=== PATIENT | male | born 1950 | race Two or more races ===

== ENCOUNTER 2023-11-17 18:04 | Emergency (ER) | payer MEDICARE, SELFPAY ==
[2023-11-17 18:23] VITALS: BP 146/84; PULSE 90; TEMP 36.7; O2SAT 99; BMI 25.1
--- NOTE | 2023-11-17 18:47 | CT_ITS ---
The [address] [address] Patient Name: URSULA RUELAS MRN: [id number] date: 1950 Sex: M Assigned Patient Location: ER Current Patient Location: ER Accession/Order Number: [id number] Exam Date: 11/17/2023 19:43 Report Date: 11/17/2023 20:21 At the request of: BIB GALARZA Procedure: CT abdomen pelvis w con EXAM: CT abdomen pelvis w con HISTORY: abdominal pain COMPARISON: None. TECHNIQUE: IV contrast enhanced CT imaging of the abdomen and pelvis. This CT exam was performed using one or more of the following dose reduction techniques: Automated exposure control, adjustment of the mA and/or KV according to patient size, or use of iterative reconstruction technique. Unless otherwise stated, incidental findings do not require dedicated follow-up imaging. FINDINGS: There is bibasilar atelectasis. The heart size is normal. There is mild hepatic steatosis. The spleen, pancreas, and adrenal glands are normal. The kidneys enhance symmetrically. There is a right midpole renal cyst. The gallbladder is distended. There is no biliary duct dilatation. There is chain suture in the sigmoid colon. There is sigmoid diverticulosis and left colon diverticulosis without evidence of acute diverticulitis. There is a few dilated loops of small bowel in the left abdomen. These measure up to 3.9 cm in diameter. The distal small bowel loops are decompressed. There is degenerative disc disease of the lumbar spine. There is posterior fusion hardware in the lower lumbar spine. There is atherosclerosis of the abdominal aorta and its branch vessels. CT/CT abdomen pelvis w con IMPRESSION: 1. Incomplete small bowel obstruction with the transition point occurring in the midline of the lower abdomen. 2. Sigmoid and left colon diverticulosis without acute diverticulitis. Electronically authenticated by: KIRSTY TALAMANTES Date: 11/17/2023 20:21
[2023-11-17 18:50] LABS: Bilirubin Urine NEGATIVE (NEGATIVE); Blood Urine NEGATIVE (NEGATIVE); Clarity Urine CLEAR (CLEAR); Color Urine YELLOW (YELLOW); Glucose Urine UA NEGATIVE (NEGATIVE); Ketones Urine TRACE mg/dL (NEGATIVE); Leukocyte Esterase Urine NEGATIVE (NEGATIVE); Nitrite Urine NEGATIVE (NEGATIVE); Protein Urine 30 mg/dL (NEG/TRACE); pH Urine 7.5 (5.0-9.0)
[2023-11-17 18:50] LABS: Basophils Percent Auto 0.3 % (0.2-2.0); Eosinophils Absolute Auto 0.2 10^3/uL (0.0-0.7); Hematocrit 40.1 % (42.0-54.0); Immature Granulocytes Abs Auto 0.05 10^3/uL (0.00-0.03); Immature Granulocytes Pct Auto 0.4 % (0.0-0.5); Lymphocytes Absolute Auto 1.6 10^3/uL (1.2-3.8); Lymphocytes Percent Auto 13.5 % (20.5-60.0); Mean Corpuscular HGB Conc 32.4 g/dL (29.9-35.2); Mean Corpuscular Volume 86.2 fL (80.0-94.0); Mean Platelet Volume 9.8 fL (9.5-13.5); Monocytes Absolute Auto 0.7 10^3/uL (0.3-0.8); Monocytes Percent Auto 5.8 % (1.7-12.0); Neutrophils Absolute Auto 9.3 10^3/uL (1.4-6.5); Platelet Count 217 10^3/uL (150-450); Red Blood Count 4.65 10^6/uL (4.70-6.10); Red Cell Distribution Width 12.9 % (11.0-15.0)
--- NOTE | 2023-11-17 18:51 | ED_ITS ---
HPI - Abdominal Pain General Chief Complaint: Abdominal Pain Stated Complaint: Abdominal Pain Time Seen by Provider: 11/17/23 18:30 Source: patient Mode of arrival: walk-in Limitations: no limitations History of Present Illness HPI narrative: Patient is a 73-year-old male with a history of hernia repair many years ago in the abdomen as well as a colon resection for colon cancer approximately 10 years ago, presents to the ER for evaluation of diffuse mid abdominal pain that began last night and has not improved today. He was diagnosed with a developing small bowel obstruction 1 year ago in this emergency department. He states he has had 3 episodes of emesis today, no fevers or upper respiratory symptoms. He denies any urinary symptoms. He had a bowel movement 45 minutes prior to arrival. No medications taken prior to arrival for symptoms. Related Data Home Medications ?Medication ?Instructions ?Recorded ?Confirmed tramadol 50 mg tablet 50 mg PO Q6H PRN pain 11/17/23 11/17/23 Previous Rx's ?Medication ?Instructions ?Recorded ondansetron 4 mg disintegrating 4 mg PO Q6H PRN nausea and 11/17/23 tablet vomiting #12 tabs tramadol 50 mg tablet 50 mg PO Q6H PRN pain #12 tabs 11/17/23 Allergies Allergy/AdvReac Type Severity Reaction Status Date / Time No Known Drug Allergies Allergy Verified 11/17/23 18:23 Review of Systems ROS Constitutional Denies: fever or chills Ears, nose, mouth, and throat Denies: throat pain or nasal congestion Cardiovascular Denies: chest pain Respiratory Denies: shortness of breath Gastrointestinal Reports: abdominal pain, nausea and vomiting; Denies: diarrhea or constipation Genitourinary Denies: painful urination Musculoskeletal Denies: back pain or neck pain Integumentary/Breast Denies: rash Neurological Denies: headache Hematologic/Lymphatic Denies: easy bruising or easy bleeding Exam Narrative Exam Narrative: Gen.: Awake, alert, in no distress Head: Normocephalic, atraumatic ENT: Moist mucous membranes Respiratory: No respiratory distress, lungs clear bilaterally Cardio: Regular rate and rhythm Gastrointestinal: Abdomen is soft, nondistended and Mildly tender to palpation in the umbilical abdomen. Well-healed surgical incision over the midline umbilical abdomen. Extremities: Moves extremities equally Psych: Normal mood and affect Neuro: No focal neuro deficit Skin: Warm, dry, intact Constitutional Vital Signs, click to edit/add: Last Vital Signs Temp 98.1 F 11/17/23 18:23 Pulse 92 H 11/17/23 19:31 Resp 18 11/17/23 19:31 BP 128/69 11/17/23 19:31 Pulse Ox 98 11/17/23 19:31 O2 Del Method Room Air 11/17/23 19:35 Course Vital Signs Vital signs: Vital Signs Temperature 98.1 F 11/17/23 18:23 Pulse Rate 90 11/17/23 18:23 Respiratory Rate 18 11/17/23 18:23 Blood Pressure 146/84 H 11/17/23 18:23 Pulse Oximetry 99 11/17/23 18:23 Oxygen Delivery Method Room Air 11/17/23 18:23 Temperature 98.1 F 11/17/23 18:23 Pulse Rate 92 H 11/17/23 19:31 Respiratory Rate 18 11/17/23 19:31 Blood Pressure 128/69 11/17/23 19:31 Pulse Oximetry 98 11/17/23 19:31 Oxygen Delivery Method Room Air 11/17/23 19:35 MDM - Abdominal Pain MDM Narrative Medical decision making narrative: Patient was medicated with IV fluids, pain medication and nausea medication. He has stable vital signs in the ER, no episodes of emesis and he had a bowel movement immediately prior to arrival. His labs are stable, no significant white blood cell count. Kidney function is stable and CT of the abdomen and pelvis shows a incomplete/partial small bowel obstruction. I discussed this with Dr. Lott, reviewed the patient's labs, presentation and CT findings. He recommended that if the patient is able to take fluids and pain is controlled, he can be discharged to trial outpatient therapy. Patient was reexamined by Dr. Taylor, patient and family are comfortable with treatment plan and patient would like to try outpatient treatment. He was encouraged to follow a clear liquid diet for 48 hours. Follow-up in the general surgery office and immediately re turn to the emergency department if he continues to vomit or stops passing gas. Medical Records Attestation: I reviewed the patient's medical records. Lab Data Attestation: I reviewed the patient's lab results. Labs: Lab Results 11/17/23 11/17/23 Range/Units 18:40 18:42 WBC 12.0 H (4.0-11.0) 10^3/uL RBC 4.65 L (4.70-6.10) 10^6/uL Hgb 13.0 L (14.0-18.0) g/dL Hct 40.1 L (42.0-54.0) % MCV 86.2 (80.0-94.0) fL MCH 28.0 (25.9-34.0) pg MCHC 32.4 (29.9-35.2) g/dL RDW 12.9 (11.0-15.0) % Plt Count 217 (150-450) 10^3/uL MPV 9.8 (9.5-13.5) fL Neut % (Auto) 78.0 H (43.0-75.0) % Lymph % (Auto) 13.5 L (20.5-60.0) % [place] % (Auto) 5.8 (1.7-12.0) % Eos % (Auto) 2.0 (0.9-7.0) % Baso % (Auto) 0.3 (0.2-2.0) % Neut # (Auto) 9.3 H (1.4-6.5) 10^3/uL Lymph # (Auto) 1.6 (1.2-3.8) 10^3/uL Beckham # (Auto) 0.7 (0.3-0.8) 10^3/uL Eos # (Auto) 0.2 (0.0-0.7) 10^3/uL Baso # (Auto) 0.0 (0.0-0.1) 10^3/uL Abs Immat Gran (auto) 0.05 H (0.00-0.03) 10^3/uL Imm/Tot Granulo (auto) 0.4 (0.0-0.5) % PT 9.7 (9.0-11.6) sec INR <0.93 Sodium 142 (136-145) mmol/L Potassium 4.1 (3.5-5.1) mmol/L Chloride 104 (98-107) mmol/L Carbon Dioxide 26.8 (21.0-32.0) mmol/L Anion Gap 15.3 BUN 28.0 H (7.0-18.0) mg/dL Creatinine 1.40 H (0.70-1.30) mg/dL Est GFR ( Amer) >60 (>=60) Est GFR (Non-Af Amer) 50 L (>=60) BUN/Creatinine Ratio 20.0 Glucose 124 H (74-106) mg/dL Lactate 2.3 H* (0.4-2.0) mmol/L Calcium 9.8 (8.5-10.1) mg/dL Total Bilirubin 0.5 (0.2-1.0) mg/dL AST 17 (15-37) U/L ALT 23 (16-63) U/L Alkaline Phosphatase 93 (46-116) U/L Total Protein 7.4 (6.4-8.2) g/dL Albumin 3.8 (3.4-5.0) g/dL Globulin 3.6 g/dL Albumin/Globulin Ratio 1.1 Lipase 33.0 (16.0-77.0) U/L Urine Color Yellow (YELLOW) Urine Clarity Clear (CLEAR) Urine pH 7.5 (5.0-9.0) Ur Specific [place] 1.020 (1.005-1.025) Urine Protein 30 A (NEG/TRACE) mg/dL Urine Glucose (UA) Negative (NEGATIVE) mg/dL Urine Ketones Trace A (NEGATIVE) mg/dL Urine Occult Blood Negative (NEGATIVE) Urine Nitrite Negative (NEGATIVE) Urine Bilirubin Negative (NEGATIVE) Urine Urobilinogen 1.0 (0.2-1.0) EU/dL Ur Leukocyte Esterase Negative (NEGATIVE) Urine RBC 0-2 (0-2) #/HPF Urine WBC 0-2 A (NONE SEEN) #/HPF Ur Squamous Epith Cells Rare (NONE/RARE) #/LPF Urine Crystals None seen (None Seen) #/HPF Urine Bacteria None seen (NONE SEEN) #/HPF Urine Casts None seen (NONE SEEN) #/LPF Urine Mucus Trace A (NONE SEEN) Ur Culture Indicated? No Imaging Data CT scan - abdomen: Attestation: I have reviewed the pertinent imaging results. Radiologist's impression: ITS Impressions Abdomen/Pelvis CT 11/17/23 18:47 IMPRESSION: 1. Incomplete small bowel obstruction with the transition point occurring in the midline of the lower abdomen. 2. Sigmoid and left colon diverticulosis without acute diverticulitis. Electronically authenticated by: KIRSTY TALAMANTES Date: 11/17/2023 20:21 Discharge Plan Discharge Stand Alone Forms: Portal Instructions Chief Complaint: Abdominal Pain Clinical Impression: Partial small bowel obstruction Patient Disposition: Home, Self-Care Time of Disposition Decision: 20:43 Condition: Good Prescriptions / Home Meds: New ondansetron 4 mg tablet,disintegrating 4 mg PO Q6H PRN (Reason: nausea and vomiting) Qty: 12 0RF tramadol 50 mg tablet 50 mg PO Q6H PRN (Reason: pain) Qty: 12 0RF Rx Instructions: DX: R10.9 No Action tramadol 50 mg tablet 50 mg PO Q6H PRN (Reason: pain) Print Language: Eritrean Instructions: Clear Liquid Diet (ED), Bowel Obstruction (ED) Additional Instructions: Please follow a clear liquid diet for 48 hours. Call the general surgery office tomorrow for follow up. If you have persistent vomiting or stop passing gas, you need to be reevaluated Referrals: Isra Lott DO [Physician] - As soon as possible BIRD LUI [Primary Care Provider] - 1 week Discharge Date/Time: 11/17/23 21:05
[2023-11-17 18:53] LABS: Urine Microscopic Indicated YES
[2023-11-17] MEDS: HYDROMORPHONE HCL 0.5 MG/0.5 ML SYRINGE IVP (18:55)
[2023-11-17] MEDS: ONDANSETRON PF 4 MG/2 ML VIAL IV (18:56)
[2023-11-17 19:07] LABS: Prothrombin Time 9.7 sec (9.0-11.6)
[2023-11-17 19:08] LABS: INR <0.93
[2023-11-17 19:14] LABS: Bacteria Urine NONE SEEN #/HPF (NONE SEEN); Cast Seen? NONE SEEN #/LPF (NONE SEEN); Crystals Seen? None Seen #/HPF (None Seen); Mucus Urine TRACE (NONE SEEN); RBC Urine 0-2 #/HPF (0-2); Squamous Epithelial Cell Urine RARE #/LPF (NONE/RARE); Urine Culture Indicated NO; WBC Urine 0-2 #/HPF (NONE SEEN)
[2023-11-17 19:19] LABS: Alanine Aminotransferase 23 U/L (16-63); Albumin Globulin Ratio 1.1; Albumin Level 3.8 g/dL (3.4-5.0); Alkaline Phosphatase 93 U/L (46-116); Anion Gap 15.3; Aspartate Amino Transferase 17 U/L (15-37); Bilirubin Total 0.5 mg/dL (0.2-1.0); Calcium 9.8 mg/dL (8.5-10.1); Carbon Dioxide 26.8 mmol/L (21.0-32.0); Chloride 104 mmol/L (98-107); Estimated GFR (African America >60 (>=60); Estimated GFR (Non-African Ame 50 (>=60); Globulin 3.6 g/dL; Glucose 124 mg/dL (74-106); Potassium 4.1 mmol/L (3.5-5.1); Sodium 142 mmol/L (136-145); Total Protein 7.4 g/dL (6.4-8.2)
[2023-11-17 19:21] LABS: Lactate/Lactic Acid 2.3 mmol/L (0.4-2.0)
[2023-11-17 19:31] VITALS: BP 128/69; PULSE 92; O2SAT 98
[2023-11-17] MEDS: 0.9 % SODIUM CHLORIDE 1,000 ML 500 ML IV (19:52)
[2023-11-17] MEDS: HYDROCODONE/ACET 5-325 MG TABLET 1 TAB PO (20:59)
== END 2023-11-17 21:05 | disposition home or self-care (01) ==
PROVIDERS: Physician Assistant; Emergency Provider Internal Medicine; PCP Family Medicine
DX: K56.600 Partial intestinal obstruction, unspecified as to cause (principal); Z85.038 Personal history of other malignant neoplasm of large intestine; Z90.49 Acquired absence of other specified parts of digestive tract
CPT/HCPCS: 36415; 74177; 80053; 81001; 83605; 83690; 85025; 85610; 96374; 96375; 99285; J1170; Q9967

== ENCOUNTER 2024-05-02 11:57 | Emergency (ER) | payer MEDICARE, SELFPAY ==
[2024-05-02 12:04] VITALS: BP 115/68; PULSE 69; O2SAT 98; BMI 25.8
--- NOTE | 2024-05-02 12:12 | XR_ITS ---
The [address] [address] Patient Name: URSULA RUELAS MRN: [id number] date: 1950 Sex: M Assigned Patient Location: ER Current Patient Location: ER Accession/Order Number: [id number] Exam Date: 05/02/2024 12:28 Report Date: 05/02/2024 12:59 At the request of: DILCIA SHAY Procedure: XR lumbar spine 2-3V EXAMINATION: XR lumbar spine 2-3V HISTORY: Atraumatic pain COMPARISON: CT abdomen pelvis 11/17/2023 FINDINGS: BONES: Posterior mechanical fusion of L4 and L5 via pedicle screws and rods. No appreciable hardware fracture loosening. Mild grade 1 retrolisthesis of L2 on 3. Chronic sclerotic degenerative endplate changes involving contiguous surfaces of L2-3. Multilevel moderate degenerative facet arthropathy. DISC SPACES: Marked narrowing L2-3. Intervertebral disc spacer at L4-5. PARASPINOUS: Negative. No paraspinous abnormality is seen. OTHER: Negative. XR/XR lumbar spine 2-3V IMPRESSION: 1. No appreciable acute abnormality. 2. Stable surgical changes and grossly stable multilevel degenerative changes. Electronically authenticated by: WALKER HANLEY Date: 05/02/2024 12:59
--- NOTE | 2024-05-02 12:12 | XR_ITS ---
The [address] [address] Patient Name: URSULA RUELAS MRN: [id number] date: 1950 Sex: M Assigned Patient Location: ER Current Patient Location: ER Accession/Order Number: [id number] Exam Date: 05/02/2024 12:28 Report Date: 05/02/2024 12:55 At the request of: DILCIA SHAY Procedure: XR foot RT min 3V PROCEDURE: XR foot RT min 3V HISTORY: Atraumatic pain ; dorsal foot pain COMPARISON: None. FINDINGS: BONES:No acute fracture or dislocation. Separate ossifications and irregularity of the first distal phalanx favoring sequela of remote injury. Degenerative changes of the first toe interphalangeal joint. SOFT TISSUES:No visible soft tissue swelling. EFFUSION:None visible. OTHER: Atherosclerotic disease. XR/XR foot RT min 3V IMPRESSION: 1. No acute bone abnormality or suspicious findings to account for patient's symptoms. Electronically authenticated by: WALKER HANLEY Date: 05/02/2024 12:55
--- NOTE | 2024-05-02 12:14 | ED.EXTPRO1 ---
HPI - Extremity Problem General Chief complaint: Extremity Problem, Nontraumatic Stated complaint: LOWER RIGHT EXTREMITY PAIN Time Seen by Provider: 05/02/24 11:59 Source: family Mode of arrival: walk-in Limitations: no limitations History of Present Illness HPI Narrative: 74-year-old male presents to the emergency department for pain of the dorsum of his right foot. This has been an ongoing issue and he saw a foot doctor today who told him that he does not think it is coming from his foot but more likely from his back. About 14 years ago he had back surgery and he has had pain since then. He has not seen a back specialist since then. He has had no injury to the foot. Related Data Home Medications ?Medication ?Instructions ?Recorded ?Confirmed tramadol 50 mg tablet 50 mg PO Q6H PRN pain 11/17/23 11/17/23 Previous Rx's ?Medication ?Instructions ?Recorded ondansetron 4 mg disintegrating 4 mg PO Q6H PRN nausea and 11/17/23 tablet vomiting #12 tabs tramadol 50 mg tablet 50 mg PO Q6H PRN pain #12 tabs 11/17/23 Allergies Allergy/AdvReac Type Severity Reaction Status Date / Time No Known Drug Allergies Allergy Verified 11/17/23 18:23 Review of Systems ROS Narrative A ten point review of systems is negative except as noted above. PFSH PFSH Social History Little interest or pleasure in doing things: not at all Feeling down, depressed, or hopeless: not at all Exam Narrative Exam Narrative: Nurses note and vital signs reviewed and patient is not hypoxic. General: The patient appears well and in no apparent distress. Patient is resting comfortably on cart. Skin: Warm, dry, no pallor noted. There is no rash noted. Head: Normocephalic, atraumatic Eye: Normal conjunctiva, no drainage Ears, Nose, Mouth, and Throat: oral mucosa is moist. Nares patent. Cardiovascular: Regular Rate and Rhythm Respiratory: Patient is in no distress, no accessory muscle use, lungs are clear to auscultation, no wheezing, rales or rhonchi Back: non-tender, no bruise or rash GI: Soft and nontender Musculoskeletal: The patient has no evidence of calf tenderness, no pitting edema, symmetrical pulses noted bilaterally. There is no bruise or rash on his right foot. There does not seem to be palpable tenderness. Neurological: A&O, normal speech Psychiatric: Cooperative Constitutional Vital Signs, click to edit/add: Last Vital Signs Temp 97.5 F L 05/02/24 13:09 Pulse 70 05/02/24 12:15 Resp 20 05/02/24 12:04 BP 115/68 05/02/24 12:04 Pulse Ox 98 05/02/24 12:04 O2 Del Method Room Air 05/02/24 12:04 Course Vital Signs Vital signs: Vital Signs Pulse Rate 69 05/02/24 12:04 Respiratory Rate 20 05/02/24 12:04 Blood Pressure 115/68 05/02/24 12:04 Pulse Oximetry 98 05/02/24 12:04 Oxygen Delivery Method Room Air 05/02/24 12:04 Temperature 97.5 F L 05/02/24 13:09 Pulse Rate 70 05/02/24 12:15 Respiratory Rate 20 05/02/24 12:04 Blood Pressure 115/68 05/02/24 12:04 Pulse Oximetry 98 05/02/24 12:04 Oxygen Delivery Method Room Air 05/02/24 12:04 MDM - Extremity (Nontraumatic) MDM Narrative Medical decision making narrative: X-ray showed no acute findings. I am suspicious of peripheral neuropathy and he is being referred to neurology at the 's request. He will follow-up with his PCP as well. Treatment diagnosis and follow-up were discussed with the patient and his . The patient was given a prescription for Percocet earlier today by his assembler surgical garment which she will fill and he was given 1 here as well. Differential Diagnosis Differential diagnosis: Likely other (Peripheral neuropathy, lumbar radiculopathy, foot pain) Imaging Data Foot x-ray, lumbar x-ray: Radiologist's impression: ITS Impressions Foot X-Ray 05/02/24 12:12 IMPRESSION: 1. No acute bone abnormality or suspicious findings to account for patient's symptoms. Electronically authenticated by: WALKER HANLEY Date: 05/02/2024 12:55 Lumbar Spine X-Ray 05/02/24 12:12 IMPRESSION: 1. No appreciable acute abnormality. 2. Stable surgical changes and grossly stable multilevel degenerative changes. Electronically authenticated by: WALKER HANLEY Date: 05/02/2024 12:59 Discharge Plan Discharge Chief Complaint: Extremity Problem, Nontraumatic Clinical Impression: Foot pain Patient Disposition: Home, Self-Care Time of Disposition Decision: 13:15 Condition: Good Mode of Transportation: Private Vehicle Prescriptions / Home Meds: No Action tramadol 50 mg tablet 50 mg PO Q6H PRN (Reason: pain) ondansetron 4 mg tablet,disintegrating 4 mg PO Q6H PRN (Reason: nausea and vomiting) Qty: 12 0RF tramadol 50 mg tablet 50 mg PO Q6H PRN (Reason: pain) Qty: 12 0RF Rx Instructions: DX: R10.9 Print Language: Maltese Instructions: Peripheral Neuropathy (ED) Referrals: Heidy Hilario DO [Physician] - 1 week BIRD LUI [Primary Care Provider] - 1 week
[2024-05-02 12:15] VITALS: PULSE 70
[2024-05-02 13:09] VITALS: TEMP 36.4
[2024-05-02] MEDS: OXYCODONE HCL/ACETAMINOPHEN 5MG/325MG 1 TAB PO (13:21)
[2024-05-02 13:25] VITALS: BP 136/89; PULSE 77
== END 2024-05-02 13:25 | disposition home or self-care (01) ==
PROVIDERS: Emergency Provider Emergency Medicine; PCP Family Medicine
DX: M79.671 Pain in right foot (principal)
CPT/HCPCS: 72100; 73630; 99284